=== PATIENT | female | born 2000 | race African-American/Black ===

== ENCOUNTER 2021-04-08 11:07 | Emergency (ER) | payer OTHER ==
[2021-04-08] MEDS ORDERED: Ketorolac Tromethamine 30 MG/ML VIAL ONE (11:47)
== END 2021-04-08 12:05 | disposition home or self-care (01) ==
LOC: CSHERS 11:07
DX: J02.9 Acute pharyngitis, unspecified (principal); H92.03 Otalgia, bilateral
CPT/HCPCS: 96372; 99283; J1885

== ENCOUNTER 2022-08-27 12:26 | Outpatient (CLI) | payer OTHER | END 2022-08-27 12:27 | disposition home or self-care (01) | LOC: CSHULT 12:26 | PROVIDERS: ATTEND Family Medicine | DX: Z34.83 Encounter for supervision of other normal pregnancy, third trimester (principal) | CPT/HCPCS: 76805 ==

== ENCOUNTER 2022-09-15 02:55 | Inpatient (IN) | payer OTHER ==
[2022-09-15 03:31] VITALS: BMI 40.1
[2022-09-15 04:03] LABS: Fetal Membranes Rupture RUPTURE DETECTED (No Rupture)
[2022-09-15] MEDS ORDERED: Ondansetron PF 4 MG/2 ML Vial IVP PRN ×2 (05:00→18:49)
[2022-09-15] MEDS ORDERED: Promethazine HCl 25 MG/ML VIAL IM PRN ×2 (05:00→18:49)
[2022-09-15] MEDS ORDERED: Lidocaine 1% (PF) 30 ML VIAL SC PRN (05:00)
[2022-09-15] MEDS ORDERED: NS w/ Oxytocin 30 units 500 ML IV SCH (05:00)
[2022-09-15] MEDS ORDERED: Zolpidem Tartrate 5 MG TAB PO PRN (05:00)
[2022-09-15] MEDS ORDERED: Butorphanol Tartrate 1 MG/ML VIAL SLOW IVP PRN (05:00)
[2022-09-15] MEDS ORDERED: Diphenoxylate HCl/Atropine Tablet PO PRN (05:00)
[2022-09-15] MEDS ORDERED: HYDROcodone/Acetaminophen 5/325 mg Tablet PO PRN ×3 (05:00→18:49)
[2022-09-15] MEDS ORDERED: Acetaminophen 500 MG TAB PO PRN (05:00)
[2022-09-15] MEDS ORDERED: Ibuprofen 800 MG TAB PO PRN (05:00)
[2022-09-15] MEDS ORDERED: Methylergonovine 0.2 MG/ML VIAL IM PRN (05:00)
[2022-09-15] MEDS ORDERED: Misoprostol 200 MCG TAB RC PRN (05:00)
[2022-09-15] MEDS ORDERED: Carboprost 250 MCG/ML AMP IM PRN (05:00)
[2022-09-15] MEDS ORDERED: NS w/ Oxytocin 30 units 500 ML IVPB SCH (05:00)
[2022-09-15] MEDS: Lactated Ringer's 1,000 ML IV SCH ×3 (05:44→17:40)
[2022-09-15 05:55] LABS: Hemoglobin 10.5 g/dL (12.0-15.5); Mean Corpuscular HGB CONC 37.4 g/dL (32.0-36.0); Mean Corpuscular Hemoglobin 30.7 pg (27.0-33.0); Mean Corpuscular Volume 82.2 fl (81.6-98.3); Platelet Count 244 10x3/uL (150-450); RBC Distribution Width 13.2 % (11.5-14.5); Red Blood Cell (RBC) Count 3.42 10x6/uL (3.90-5.03); White Blood Cell (WBC) Count 13.1 10x3/uL (3.5-10.5)
[2022-09-15 06:01] LABS: HBSAg Index 0.14 S/CO (0-0.99); HIV (1/2) Antibody/Antigen Non-Reactive (NonReactive); HIV 1/2 INDEX 0.12 S/CO (<1.00); Hep B Surf Ag Non-Reactive S/CO (NonReactive)
[2022-09-15 06:02] LABS: Syphilis Antibody Nonreactive (Nonreactive); Syphilis Antibody Index 0.03 S/CO (<1.00 Non-Reactive)
[2022-09-15 07:16] LABS: SARS-CoV-2 NAA Rapid Test Not Detected (NotDetected)
[2022-09-15] MEDS ORDERED: Bupivacaine 0.25% HCL 30 ML VIAL ONE (08:00)
[2022-09-15] MEDS ORDERED: Fentanyl 2 mcg/Bup 0.1% Cadd 100 ML ONE (08:48)
[2022-09-15] MEDS ORDERED: Docusate 100 MG CAP PO SCH (09:00)
[2022-09-15] MEDS: hydrALAZINE 20 MG/ML VIAL SLOW IVP PRN ×3 (16:15→18:48)
[2022-09-15] MEDS ORDERED: Magnesium Sulfate 20 gm/500 ml 20 GM/500 ML BAG ONE (16:26)
[2022-09-15] MEDS ORDERED: hydrALAZINE 20 MG/ML VIAL ONE (18:46)
[2022-09-15] MEDS ORDERED: Lorazepam 2 MG/ML VIAL SLOW IVP PRN (18:49)
[2022-09-15] MEDS ORDERED: Calcium Gluc 4.6 MEQ/10 ML (100 MG/ML) SLOW IVP PRN (18:49)
[2022-09-15] MEDS ORDERED: hydrALAZINE 20 MG/ML VIAL SLOW IVP PRN ×2 (18:49)
[2022-09-15] MEDS ORDERED: Milk Of Magnesia 30 ML UDCUP PO PRN (18:49)
[2022-09-15] MEDS ORDERED: Magnesium Sulfate 20 gm/500 ml 20 GM/500 ML BAG IVPB SCH (18:49)
[2022-09-15] MEDS ORDERED: Boostrix 0.5 ML (Tdap) VIAL (>/=7 yrs of age) IM ONE (18:49)
[2022-09-15] MEDS ORDERED: Bisacodyl 10 MG SUPP PR PRN (18:49)
[2022-09-15] MEDS ORDERED: diphenhydrAMINE 25 MG CAP PO PRN (18:49)
[2022-09-15] MEDS ORDERED: Benzocaine-Menthol 82.5 ML CAN TOP PRN (18:49)
[2022-09-15] MEDS ORDERED: Labetalol HCl 100 MG/20 ML VIAL SLOW IVP PRN ×2 (18:49)
[2022-09-15] MEDS ORDERED: Lanolin Ointment 7 GM TUBE TOP PRN (18:49)
[2022-09-15] MEDS ORDERED: NIFEdipine XL 30 MG TAB PO SCH (19:00)
[2022-09-16] MEDS ORDERED: hydrALAZINE 20 MG/ML VIAL ONE (01:33)
[2022-09-16] MEDS ORDERED: cloNIDine 0.1 MG TAB PO PRN (15:09)
[2022-09-16] MEDS: Docusate 100 MG CAP PO SCH ×2 (19:09→21:07)
[2022-09-16] MEDS: Ibuprofen 800 MG TAB PO SCH ×3 (19:10→21:07)
[2022-09-16] MEDS: Ferrous Sulfate 325 MG TAB PO SCH ×2 (19:11→19:13)
[2022-09-16] MEDS: NIFEdipine XL 30 MG TAB PO SCH (19:13)
[2022-09-16] MEDS: Prenatal Vitamin 1 TAB PO SCH (19:13)
[2022-09-17] MEDS: Ibuprofen 800 MG TAB PO SCH ×2 (04:53→13:42)
[2022-09-17] MEDS: Ferrous Sulfate 325 MG TAB PO SCH ×2 (08:05→13:41)
[2022-09-17] MEDS: Docusate 100 MG CAP PO SCH (08:20)
[2022-09-17] MEDS: Prenatal Vitamin 1 TAB PO SCH (08:20)
[2022-09-17] MEDS: NIFEdipine XL 30 MG TAB PO SCH (08:20)
[2022-09-17 11:05] VITALS: BP 128/73; TEMP 97.4
== END 2022-09-17 16:40 | disposition home or self-care (01) | DRG 806 ==
LOC: CSHLD/OP 02:55 → CSHLD 04:15 → CSHPP 09-16 18:00
PROVIDERS: ADMIT Family Medicine; ATTEND Family Medicine
PROC: 10E0XZZ Delivery of Products of Conception, External Approach (ICD-10-PCS; principal; 2022-09-15)
PROC: 0UQGXZZ Repair Vagina, External Approach (ICD-10-PCS; 2022-09-15)
DX: O42.02 Full-term premature rupture of membranes, onset of labor within 24 hours of rupture (principal); O71.4 Obstetric high vaginal laceration alone; Z37.0 Single live birth; O14.14 Severe pre-eclampsia complicating childbirth; O69.1XX0 Labor and delivery complicated by cord around neck, with compression, not applicable or unspecified; Z20.822 Contact with and (suspected) exposure to COVID-19; Z3A.38 38 weeks gestation of pregnancy; Z79.899 Other long term (current) drug therapy
CPT/HCPCS: 36415; 51702; 84112; 85027; 86780; 86850; 86900; 86901; 87340; 87389; 99285; J0360; J2001; J2590; J3475; J7120; S0020; U0002

== ENCOUNTER 2024-09-05 16:24 | Emergency (ER) | payer MEDICAID, SELFPAY ==
[2024-09-05] MEDS ORDERED: EPINEPHrine 1 MG/ML VIAL ONE (17:07)
[2024-09-05] MEDS ORDERED: methylPREDNISolone Sod Succ/PF 125 MG/2 ML VIAL ONE (17:08)
[2024-09-05] MEDS ORDERED: diphenhydrAMINE 50 MG/ML VIAL ONE (17:09)
== END 2024-09-05 18:40 | disposition home or self-care (01) ==
LOC: CSHERS 16:24
DX: O99.891 Other specified diseases and conditions complicating pregnancy (principal); T78.2XXA Anaphylactic shock, unspecified, initial encounter; Z3A.10 10 weeks gestation of pregnancy
CPT/HCPCS: 96372; 96374; 96375; J0171; J1200; J2919

== ENCOUNTER 2025-03-11 07:55 | Emergency (ER) | payer OTHER ==
[2025-03-11] MEDS ORDERED: Acetaminophen 500 MG TAB ONE (08:18)
== END 2025-03-11 08:30 | disposition home or self-care (01) ==
LOC: CSHERS 07:55
DX: O99.613 Diseases of the digestive system complicating pregnancy, third trimester (principal); K04.7 Periapical abscess without sinus; Z3A.36 36 weeks gestation of pregnancy
CPT/HCPCS: 99282